=== PATIENT | female | born 1990 | race Two or more races ===

== ENCOUNTER 2019-10-29 10:45 | Inpatient (IN) | payer OTHER ==
[~2019-10-29] VITALS: Ht 157.5 cm; Wt 66.2 kg
[2019-11-20] MEDS ORDERED: SYNTHROID50 MCG (08:24)
[2019-11-20] MEDS ORDERED: PRENATAL CAPLE1 EAC1 PO (09:45)
== END 2019-11-23 14:16 | disposition home or self-care (01) | DRG 807 ==
LOC: LDR 11-20 06:09 → OB/GYN 11-20 06:09 → SURG-SUITE 11-21 14:06 → OB/GYN 11-25 12:30
PROVIDERS: ADMIT Obstetrics & Gynecology; ATTEND Obstetrics & Gynecology
PROC: 10E0XZZ Delivery of Products of Conception, External Approach (ICD-10-PCS; principal; 2019-11-20)
PROC: 0UQGXZZ Repair Vagina, External Approach (ICD-10-PCS; 2019-11-20)
PROC: 4A0HXFZ Measurement of Products of Conception, Cardiac Rhythm, External Approach (ICD-10-PCS; 2019-11-20)
DX: O71.4 Obstetric high vaginal laceration alone (principal); Z37.0 Single live birth; Z3A.39 39 weeks gestation of pregnancy; Z20.828 Contact with and (suspected) exposure to other viral communicable diseases

== ENCOUNTER 2019-11-12 08:39 | Outpatient (CLI) | payer OTHER | END 2019-11-12 09:11 | disposition home or self-care (01) | LOC: NST 08:39 | PROVIDERS: ATTEND Obstetrics & Gynecology Maternal & Fetal Medicine | DX: Z34.83 Encounter for supervision of other normal pregnancy, third trimester (principal) ==

== ENCOUNTER 2019-11-15 09:06 | Outpatient (CLI) | payer OTHER | END 2019-11-15 10:13 | disposition home or self-care (01) | LOC: NST 09:06 | PROVIDERS: ATTEND Obstetrics & Gynecology | DX: Z34.83 Encounter for supervision of other normal pregnancy, third trimester (principal) ==

== ENCOUNTER 2019-11-19 12:44 | Outpatient (CLI) | payer OTHER ==
[2019-11-20] MEDS ORDERED: SYNTHROID50 MCG (08:24)
[2019-11-20] MEDS ORDERED: PRENATAL CAPLE1 EAC1 PO (09:45)
== END 2019-11-19 13:23 | disposition home or self-care (01) ==
LOC: NST 12:44
PROVIDERS: ATTEND Obstetrics & Gynecology
DX: Z34.83 Encounter for supervision of other normal pregnancy, third trimester (principal)